=== PATIENT | female | born 1995 | race Caucasian/White ===

== ENCOUNTER 2022-05-27 16:28 | Emergency (ER) | payer OTHER, MEDICAID, SELFPAY ==
[2022-05-27 16:30] VITALS: BP 135/87; PULSE 70; RESP 16; TEMP 37.4; O2SAT 100; BMI 31.3
[2022-05-27 16:33] VITALS: BP 135/87; PULSE 70; RESP 16; TEMP 37.4; O2SAT 100
--- NOTE | 2022-05-27 16:48 | EKG12_ITS ---
Test Reason : Blood Pressure : / mmHG Vent. Rate : 071 BPM Atrial Rate : 071 BPM P-R Int : 158 ms QRS Dur : 082 ms QT Int : 368 ms P-R-T Axes : 061 029 024 degrees QTc Int : 399 ms Normal sinus rhythm with sinus arrhythmia Normal ECG Confirmed by LUIS CARLOS COLES, SHELDON ([id number]), make up editor NICK MCDUFFIE ([id number]) on 05/29/2022 8:15:11 AM Referred By: Confirmed By:SHELDON ALDRIDGE MD
--- NOTE | 2022-05-27 16:49 | EX.ED.DYSGE1 ---
HPI History of Present Illness Chief Complaint: Ear Problem Informant: patient Narrative Narrative: Presents to ED today for syncopal episode while in the bathroom. Prodromal lightheaded symptoms. Patient reports dealing with ear symptoms with sinus congestion for over 2 weeks seen urgent care 6 days ago placed on Augmentin. States yesterday increasing migraine symptoms. Mild dizziness. Today after using the restroom had her symptoms and passed out. There is no chest pains. No urinary symptoms. No recent vomiting or diarrhea. She is on day 6 of 7 of Augmentin that she brought. Denies fevers. History of migraines. Headache currently. Prior similar symptoms: No PFSH PFSH Home Medications Prenatabs FA 1 tab PO DAILY 06/04/17 [History Last Taken 06/03/17 20:00] sertraline 50 mg tablet (Zoloft) 50 mg PO DAILY 06/04/17 [History Last Taken 06/03/17 20:00] ibuprofen 600 mg tablet 600 mg PO 4X/DAY PRN Pain #30 tabs 06/10/17 [Rx Last Taken Unknown] oxycodone-acetaminophen 5 mg-325 mg tablet 1 - 2 tab PO Q8 PRN Pain ##28 06/10/17 [Rx Last Taken Unknown] Allergy/AdvReac Type Severity Reaction Status Date / Time No Known Allergies Allergy Verified 05/27/22 16:33 Social History Smoking Status: Never smoker ROS ROS ED Constitutional Constitutional ED: Denies chills, fever(s) or sweats Eyes Eyes: Denies change in vision ENT ENT ED: Reports ear pain and other Details: Sinus congestion ; Denies dysphagia or sore throat Cardiovascular Cardiovascular: Denies chest pain, leg edema, palpitations or racing heartbeat Respiratory/Chest Respiratory/Chest: Denies cough, dyspnea or dyspnea on exertion Gastrointestinal Gastrointestinal: Denies abdominal pain, diarrhea, nausea or vomiting Genitourinary Genitourinary ED: Denies dysuria, hematuria or urinary frequency Musculoskeletal Musculoskeletal: Denies back pain, extremity pain or neck pain Integumentary Denies rash or wounds Neurologic Neurologic: Reports headache(s); Denies paresthesias or weakness EXAM Physical Exam Const Vital Signs: 05/27/22 16:30 05/27/22 16:33 05/27/22 18:09 Temperature 99.4 F H 99.4 F H 97.9 F Temperature Source Temporal Temporal Oral Pulse Rate 70 70 81 Respiratory Rate 16 16 16 Blood Pressure 135/87 H 135/87 H 106/61 Blood Pressure Mean 103 103 76 Pulse Ox 100 100 98 Oxygen Delivery Method Room Air Room Air Room Air Positive well nourished and well developed General Appearance ED: well developed and NAD HEENT Reports moist mucous membranes HEENT Narrative: Bilateral maxillary sinus tenderness, mild swollen turbinates bilateral left greater than right with clear drainage. TMs were normal bilaterally no erythema drainage or bulging. TMs intact. normocephalic and atraumatic Eyes PERRL, EOMs intact bilaterally and conjunctivae normal General Eye ED: Yes normal appearance of both eyes Neck no lymphadenopathy and supple Neck Narrative: No meningismus General: Negative for tenderness Chest Wall Chest: Negative for tenderness Resp normal respiratory effort and normal air movement Effort and Inspection: symmetric chest movement; Negative for respiratory distress Cardio regular rate, regular rhythm and no murmurs Peripheral Pulses: pulses 2+ throughout GI normal to inspection, nondistended, normoactive bowel sounds and non-tender Palpation: Negative for guarding or rebound tenderness present Back/Spine no CVA tenderness and no thoracic nor lumbar tenderness Extremity normal to inspection General Extremety ED: Negative for edema or tenderness General Extremity: Negative for edema Neuro oriented x3, CN's II-XII intact bilaterally and no sensory deficits noted Sensorium / Orientation: awake and alert Skin no rashes or lesions noted and no wounds MDM MDM MDM Narrative Medical decision making narrative: Patient presented syncopal episode EKG labs are normal. She presents with headache symptoms with no focal neurological deficits. Treat migraines. Treated Reglan Benadryl and fluids with improvement of symptoms. Patient more clinical sinusitis symptoms she has 2 doses of antibiotics left. She will finish this. She will follow-up with her PCP. Return precautions discussed. All questions were answered. Lab Data Attestation: I reviewed the patient's lab results. Labs: Laboratory Results - last 24 hr 05/27/22 05/27/22 05/27/22 17:48 17:48 17:48 WBC 8.5 RBC 4.56 Hgb 14.5 Hct 41.7 MCV 91.4 MCH 31.8 MCHC 34.8 RDW Std Deviation 39.8 RDW Coeff of Noemy 11.9 Plt Count 242 MPV 9.9 Immature Gran % (Auto) 0.200 Neut % (Auto) 58.8 Lymph % (Auto) 32.4 Snyder % (Auto) 7.0 Eos % (Auto) 1.1 Baso % (Auto) 0.5 Absolute Neuts (auto) 5.0 Absolute Lymphs (auto) 2.76 Nucleated RBC % 0 Sodium 140 Potassium 3.8 Chloride 106 Carbon Dioxide 27.0 Anion Gap 7 BUN 17 Creatinine 0.74 Estim Creat Clear Calc 109.08 Est GFR (MDRD) Af Amer 119 Est GFR (MDRD) Non-Af 98 BUN/Creatinine Ratio 22.9 H Glucose 85 Calcium 8.7 Serum , Qual NEGATIVE EKG Initial EKG: Attestation: I personally reviewed and interpreted this EKG as follows: Comments: Sinus rate of 71, no ST changes isolated T wave version lead III nonspecific. QTc 399. Discharge Plan Triage Chief Complaint: Ear Problem ED Provider: Mainor Trinh Dx/Rx/DC Orders Clinical Impression: Syncope, Headache, migraine, Sinusitis Instructions: Causes of Sinusitis, ED, Migraine (Classical), ED Dizziness or Syncope ... Prescriptions: No Action sertraline [Zoloft] 50 MG tablet 50 mg PO DAILY Prenatabs FA 1 tab PO DAILY oxycodone-acetaminophen 1 TABLET tablet 1 - 2 tab PO Q8 PRN (Reason: Pain) Qty: 28 0RF ibuprofen 600 MG tablet 600 mg PO 4X/DAY PRN (Reason: Pain) Qty: 30 1RF Primary Care Provider: Vianca Valero Referrals: [facility] Doctor,Out of [Non-Staff] - Activity Restrictions/Additional Instructions: EKG basic labs normal. Finish your antibiotics. Follow-up with your doctor for outpatient reevaluation. Return if any worsening symptoms. Disposition Disposition: Home, Self Care Discharge Date/Time: 05/27/22 18:39
[2022-05-27] MEDS: 0.9% Normal Saline 1,000 ML 1000 ML IV (17:41)
[2022-05-27] MEDS: DiphenhydrAMINE 50 MG/ML Syringe 25 MG IV (17:42)
[2022-05-27] MEDS: Metoclopramide 10 MG/2 ML Vial IV (17:42)
[2022-05-27 17:57] LABS: Absolute Lymphocyte Count 2.76 X10^3/uL (0.83-4.51); Basophil# 0.04 X10^3/uL; Basophil% 0.5 % (0-1); Eosinophil# 0.09 X10^3/uL; Eosinophils% 1.1 % (0-5); Hematocrit 41.7 % (37-47); Hemoglobin 14.5 g/dL (12.0-15.0); Lymphocyte # 2.76 X10^3/ul (0.83-4.51); Lymphocyte % 32.4 % (19-41); Mean Corp Hgb Conc 34.8 g/dL (32-36); Mean Corpuscular Hgb 31.8 pg (27.0-32.0); Mean Corpuscular Volume 91.4 fL (81-99); Mean Platelet Vol. 9.9 fl (6.2-12.0); NRBC Flagged by Analyzer 0 % (0-5); Neutrophil # 5.01 X10^3/uL (2.7-7.7); Neutrophil % 58.8 % (47-70); Platelet Count 242 K/mm3 (150-450); RBC Distribution Width CV 11.9 % (11.6-14.6); RBC Distribution Width SD 39.8 fl (35.1-43.9); Red Blood Count 4.56 M/mm3 (4.2-5.4); White Blood Count 8.5 K/mm3 (4.4-11.0)
[2022-05-27 18:08] LABS: Internal QC Validated? YES +Cl - CLEAR BKGD; Pregnancy, Serum, hCG Quali. NEGATIVE Negative
[2022-05-27 18:09] VITALS: BP 106/61; PULSE 81; RESP 16; TEMP 36.6; O2SAT 98
[2022-05-27 18:11] LABS: Anion Gap 7 (5-15); BUN 17 mg/dL (7-18); BUN/Creat Ratio 22.9 RATIO (10-20); Calcium,Total 8.7 mg/dL (8.5-10.1); Chloride 106 mmol/L (98-107); Creatinine, Serum 0.74 mg/dL (0.55-1.02); EST Glomerular Filtration Rate 98 mL/min (>60); Est Glom Filt Rate - Afr Amer 119 mL/min (>60); Estimated Creatinine Clearance 109.08 ml/min; Glucose 85 mg/dL (74-106); Potassium 3.8 mmol/L (3.5-5.1); Sodium Level 140 mmol/L (136-145)
== END 2022-05-27 18:39 | disposition home or self-care (01) ==
PROVIDERS: Emergency Provider Emergency Medicine; PCP Physician Assistant; Visit Provider Emergency Medicine
DX: R55 Syncope and collapse (principal); G43.909 Migraine, unspecified, not intractable, without status migrainosus; J32.9 Chronic sinusitis, unspecified; H92.09 Otalgia, unspecified ear
CPT/HCPCS: 80048; 84703; 85025; 93005; 96361; 96374; 96375; 99283; J7030